=== PATIENT | female | born 1985 | race Caucasian/White ===

== ENCOUNTER 2017-07-15 03:10 | Emergency (ER) | payer OTHER ==
[2017-07-15 03:36] LABS: BILIRUBIN,URINE NEGATIVE (NEGATIVE)
[2017-07-15 04:05] LABS: UA w/ MICROSCOPIC CHARGE YES
[2017-07-15 04:06] LABS: UR CULTURE IF IND INDICATED
--- NOTE | 2017-07-15 04:08 | ED Physician Documentation ---
PD HPI BACK PAIN - Stated complaint Stated Complaint: BACK PX - Chief complaint Chief Complaint: UTI - History obtained from History obtained from: Patient - History of Present Illness Timing - onset: Yesterday Timing - details: Abrupt onset Pain level now: 7 Location: Mid, Lower, Right, Left Quality: Pain Associated symptoms: No: Fever, Weakness, Numbness, Incontinent of urine, Unable to urinate, Hematuria, Incontinent of stool Improves with: Rest, Position Worsened by: Movement Similar symptoms before: Has not had sx before Recently seen: Not recently seen - Additional information Additional information: c/o 24 hours of urinary frequency and burning dysuria, and 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 Review of Systems Constitutional: denies: Fever GI: denies: Abdominal Pain, Nausea, Vomiting : reports: Dysuria, Frequency Musculoskeletal: reports: Back pain PD PAST MEDICAL HISTORY - Past Medical History Past Medical History: Yes Respiratory: Asthma Psych: ADD/ADHD - Past Surgical History Past Surgical History: Yes /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 HEENT: Tonsil/Adenoidectomy - Present Medications Home Medications: Ambulatory Orders Medication Instructions Recorded Confirmed Albuterol Sulfate 2.5 mg IH Q6HR PRN #25 units 05/31/14 07/15/17 Dextroamphetamine/Amphetamine 1 cap PO DAILY 07/15/17 07/15/17 [Adderall Xr 30 mg Capsule] Hydrocodone/Acetaminophen 1 - 2 each PO Q6HR PRN #14 tablet 07/15/17 [Hydrocodone-Acetamin 5-325 mg] Nitrofurantoin [Macrobid] 100 mg PO DAILY #6 capsule 07/15/17 Venlafaxine ER [Effexor ER] 1 tab PO DAILY 07/15/17 07/15/17 - Allergies Allergies/Adverse Reactions: Allergies Allergy/AdvReac Type Severity Reaction Status Date / Time amoxicillin trihydrate * Allergy Unknown Verified 05/31/14 10:20 [From Augmentin] erythromycin base Allergy Unknown Verified 05/31/14 10:20 [Erythromycin Base] Penicillins Allergy Unknown Verified 05/31/14 10:20 potassium clavulanate * Allergy Unknown Verified 05/31/14 10:20 [From Augmentin] - Social History Does the pt smoke?: Yes Smoking Status: Current every day smoker Does the pt drink ETOH?: Yes Does the pt have substance abuse?: No - POLST Patient has POLST: No PD ED PE NORMAL - Vitals Vital signs reviewed: Yes - General General: Alert and oriented X 3, Well developed/nourished, Other (appears uncomfortable, mild painful distress at times) - Cardiac Cardiac: RRR, No murmur - Respiratory Respiratory: No respiratory distress, Clear bilaterally - Abdomen Abdomen: Normal bowel sounds, Soft, Non tender, Non distended - Back Back: Other (right CVAT, mild) - Derm Derm: No rash Results - Vitals Vitals: Vital Signs - 24 hr 07/15/17 07/15/17 03:19 06:13 Temperature 36.6 C 36.8 C Heart Rate 93 81 Respiratory 20 18 Rate Blood Pressure 147/85 H 136/89 H O2 Saturation 97 99 Oxygen O2 Source Room air - Labs Labs: Laboratory Tests 07/15/17 07/15/17 03:29 03:30 Urine Color YELLOW Urine Clarity CLEAR Urine pH 6.0 Ur Specific [place] 1.015 1.015 Urine Protein 30 H Urine Glucose (UA) NEGATIVE Urine Ketones NEGATIVE Urine Occult Blood LARGE H Urine Nitrite NEGATIVE Urine Bilirubin NEGATIVE Urine Urobilinogen 0.2 (NORMAL) Ur Leukocyte Esterase TRACE H Urine RBC 6-10 H Urine WBC 11-25 H Ur Squamous Epith Cells RARE Squamous Urine Bacteria None Seen Ur Microscopic Review INDICATED Urine Culture Comments INDICATED Urine HCG, Qual NEGATIVE - Rads (name of study) CT A/P Radiology: Prelim report reviewed, See rad report PD MEDICAL DECISION MAKING - ED course Complexity details: reviewed results, re-evaluated patient, considered differential, d/w patient Departure - Departure Disposition: 01 Home, Self Care Clinical Impression: Cystitis Condition: Good Instructions: ED UTI Cystitis Female Prescriptions: Hydrocodone/Acetaminophen [Hydrocodone-Acetamin 5-325 mg] 1 - 2 each PO Q6HR PRN #14 tablet PRN Reason: Pain Nitrofurantoin [Macrobid] 100 mg PO DAILY #6 capsule Discharge Date/Time: 07/15/17 06:26
[2017-07-15 04:30] LABS: HCG UR QUAL NEGATIVE
[2017-07-15] MEDS ORDERED: KETOROLAC 60 MG/2 ML VIAL IM STA (04:34)
--- NOTE | 2017-07-15 05:26 | CT Preliminary Report ---
Exam: CT ABDOMEN/PELVIS W/O IMPRESSION: 1. No urolithiasis seen bilaterally. 2. Slight fullness of the right collecting system and ureter with very mild perinephric and periurete ral stranding. This could be due to recently passed stone. Infection could also have this appearance. [facility] SITE ID: [id number]
--- NOTE | 2017-07-15 05:29 | CT Report ---
EXAM: CT ABDOMEN AND PELVIS (CT KUB) EXAM DATE: 07/15/2017 05:01 AM. CLINICAL HISTORY: Back pain, hematuria. COMPARISONS: None. TECHNIQUE: Routine axial helical CT imaging was performed through the abdomen and pelvis without IV c ontrast. Reconstructions: Coronal and sagittal. In accordance with CT protocol optimization, one or more of the following dose reduction techniques w ere utilized for this exam: automated exposure control, adjustment of mA and/or KV based on patient s ize, or use of iterative reconstructive technique. FINDINGS: Lung Bases: Unremarkable. Right Kidney/Ureter: No stones are identified in the kidney or ureter. There is slight fullness of th e collecting system and ureter with mild perinephric and periureteral stranding. Left Kidney/Ureter: No stones, hydronephrosis, or hydroureter. No perinephric fat stranding. Other Solid Organs: Noncontrast images of the solid organs are grossly unremarkable. Gallbladder/Bile Ducts: Unremarkable. Peritoneal Cavity: No bowel obstruction seen. No diverticulitis. No free air or free fluid. No lympha denopathy. Appendix is partially seen and visualized portions appear normal. Pelvic Organs: No bladder stones or wall thickening. Noncontrast images of the visualized pelvic orga ns are unremarkable. Vasculature: Unremarkable. Other: None. IMPRESSION: 1. No urolithiasis seen bilaterally. 2. Slight fullness of the right collecting system and ureter with very mild perinephric and periurete ral stranding. This could be due to recently passed stone. Infection could also have this appearance. [facility] Referring Provider Line: [phone] SITE ID: [id number]
[2017-07-15] MEDS ORDERED: HYDROcod/ACET 5/325 Prepack 6 PO STA (06:05)
[2017-07-15] MEDS ORDERED: NITROFURANTOIN MACRO 100 MG CAPSULE PO STA (06:05)
[2017-07-15 06:13] VITALS: BP 136/89
== END 2017-07-15 06:26 | disposition home or self-care (01) ==
LOC: ED 03:10
DX: N30.90 Cystitis, unspecified without hematuria (principal); F17.200 Nicotine dependence, unspecified, uncomplicated
CPT/HCPCS: 74176; 81001; 81025; 87077; 87086; 87181; 96374; 99283; A9270; 81003

== ENCOUNTER 2018-01-29 06:10 | Day surgery (SDC) | payer OTHER ==
[2018-01-29] MEDS ORDERED: IPRATROPIUM/ALBUTEROL 3 ML NEB INH ONE (06:58)
[2018-01-29 07:12] LABS: HCG UR QUAL NEGATIVE
[2018-01-29] MEDS ORDERED: LACTATED RINGERS 1,000 ML IV ONE ×2 (07:13→09:05)
[2018-01-29] MEDS ORDERED: ceFAZolin 2 GM/50 ML 2 GM/50 ML BAG IV ONE (07:33)
[2018-01-29] MEDS ORDERED: BUPIVACAINE 0.5%-EPI 1:200000 PF 30 ML VIAL ONE (07:40)
[2018-01-29] MEDS ORDERED: BUPIVACAINE 0.5%-EPI 1:200000 PF 30 ML VIAL SUBQ ONE ×2 (07:44)
[2018-01-29] MEDS ORDERED: ACETAMINOPHEN 1,000 MG/100 ML 100 ML IV ONE (08:00)
[2018-01-29] MEDS ORDERED: PROPOFOL 200 MG/20 ML VIAL IVP ONE (08:00)
[2018-01-29] MEDS ORDERED: MIDAZOLAM 2 MG/2 ML VIAL IVP ONE (08:00)
[2018-01-29] MEDS ORDERED: LIDOCAINE-MPF 2% 5 ML VIAL IM ONE (08:00)
[2018-01-29] MEDS ORDERED: DEXAMETHASONE 4 MG/ML VIAL IVP ONE (08:00)
[2018-01-29] MEDS ORDERED: fentaNYL 100 MCG/2 ML VIAL IVP ONE (08:00)
[2018-01-29] MEDS ORDERED: ONDANSETRON 4 MG/2 ML VIAL IVP ONE (08:00)
[2018-01-29] MEDS ORDERED: KETOROLAC 30 MG/ML VIAL IVP ONE (08:00)
[2018-01-29] MEDS ORDERED: MEPERIDINE 50 MG/ML VIAL ONE (08:54)
[2018-01-29] MEDS ORDERED: HYDROcod/ACETAM 5/325 MG TABLET ONE (09:24)
[2018-01-29 10:53] VITALS: BP 118/73
--- NOTE | 2018-01-29 11:01 | OPERATIVE REPORT ---
DATE OF SERVICE: 01/29/2018 Physician: Vamsi Remy MD PREOPERATIVE DIAGNOSIS: Soft tissue mass of the abdominal wall. POSTOPERATIVE DIAGNOSIS: Soft tissue mass of the abdominal wall. PROCEDURE PERFORMED: Wide local excision of soft tissue mass of the abdominal wall. ANESTHESIA: General LMA by Deo Ortiz CRNA. SURGEON: Vamsi Remy MD ESTIMATED BLOOD LOSS: Minimal. DRAINS: None. COMPLICATIONS: None. FINDINGS: An approximately 2-3 cm mass was present in the deep subcutaneous tissues. It was firm and was excised with gross margins of at least 1 cm circumferentially, and the deep margin of resection was carried out to the anterior fascia. The superficial margin was marked with a silk suture, and the deep margin with a Vicryl suture. INDICATIONS: Patient is a 32-year-old woman with a several year history of a slowly enlarging, increasingly painful and tender mass in her right lower quadrant abdominal wall. Examination revealed an approximately 2 cm mass in the deep soft tissues of her right lower quadrant, several centimeters above the lateral edge of a prior Pfannenstiel surgical scar. MRI showed that the lesion was in the deep subcutaneous tissues, and of unclear etiology. Resection was recommended for definitive diagnosis and local therapy. TECHNIQUE: After informed consent, the patient was taken to the operating room , where she was placed under general LMA anesthesia. Preoperative preparation included application of sequential calf compression boots, administration of 2 grams cefazolin intravenously within an hour of the incision. Her abdomen was prepared with ChloraPrep solution, draped in the usual sterile fashion. The location of the lesion had previously been marked with indelible ink. A transverse incision was made approximately 5 cm in length overlying the palpable mass, and carried down in the subcutaneous tissues. Hemostasis was achieved with electrocautery. The mass, together with the surrounding subcutaneous tissues, was then widely excised with gross margins of at least a centimeter. The closest margin was the deep margin. The other margins were grossly 2 cm or greater. The excision specimen was marked as noted above, and sent for pathologic evaluation. After hemostasis was assured, the wound was irrigated with saline solution. 20 mL of 0.5% Marcaine with epinephrine was infiltrated into the wound to assist in postoperative analgesia, and wound closure was accomplished in layers using continuous 2-0 Vicryl for the deep subcutaneous tissues, 3-0 Vicryl for the superficial subcutaneous tissues, 4-0 Monocryl for the skin, and Dermabond. Anesthesia was terminated. The patient was transferred to the recovery room in satisfactory condition. Sponge and needle counts were correct x2. No drains were used. TD: 01/29/2018 09:08 MTDSherin
== END 2018-01-29 06:11 | disposition home or self-care (01) ==
LOC: SDS 06:10
PROVIDERS: ATTEND Internal Medicine Gastroenterology
PROC: 0JB80ZZ Excision of Abdomen Subcutaneous Tissue and Fascia, Open Approach (ICD-10-PCS; principal; 2018-01-29 07:30)
DX: N80.6 Endometriosis in cutaneous scar (principal); J45.909 Unspecified asthma, uncomplicated; F32.9 Major depressive disorder, single episode, unspecified; F41.9 Anxiety disorder, unspecified; F90.9 Attention-deficit hyperactivity disorder, unspecified type; F40.240 Claustrophobia; F17.200 Nicotine dependence, unspecified, uncomplicated; Z98.891 History of uterine scar from previous surgery; Z80.41 Family history of malignant neoplasm of ovary; Z80.3 Family history of malignant neoplasm of breast; Z80.8 Family history of malignant neoplasm of other organs or systems
CPT/HCPCS: 22903; 81025; A9270; J0131; J0690; J2175; J7120